=== PATIENT | female | born 1960 | race Caucasian/White ===

== ENCOUNTER 2023-11-28 12:10 | Emergency (ER) | payer MEDICAID ==
[~2023-11-28] VITALS: Ht 165.1 cm; Wt 68.0 kg
[2023-11-28 12:18] VITALS: BP 146/78; PULSE 72; RESP 16; O2SAT 99
[2023-11-28] MEDS ORDERED: ACETAMINOPHEN 325MG TABLET PO ONE (12:30)
[2023-11-28 15:30] VITALS: TEMP 98.6
[2023-11-28] MEDS: ACETAMINOPHEN 325MG TABLET PO NR (15:30)
== END 2023-11-28 18:35 | disposition home or self-care (01) ==
LOC: ER 12:10
DX: M54.2 Cervicalgia (principal); I10 Essential (primary) hypertension; V49.9XXA Car occupant (driver) (passenger) injured in unspecified traffic accident, initial encounter; Y93.89 Activity, other specified; Y92.89 Other specified places as the place of occurrence of the external cause; Y99.8 Other external cause status
CPT/HCPCS: 72128; 72131; 81025; 99284